=== PATIENT | male | born 1980 | race African-American/Black ===

== ENCOUNTER 2021-04-21 05:20 | Emergency (ER) | payer MEDICAID ==
[~2021-04-21] VITALS: Ht 190.5 cm; Wt 92.0 kg
[2021-04-21] MEDS ORDERED: MAGNESIUM/ALUMINUM HYDROXIDE/SIMETHICONE 30ML UDC PO STA (05:53)
[2021-04-21] MEDS ORDERED: ONDANSETRON HCL 4MG/2ML INJ IV STA (05:53)
[2021-04-21] MEDS ORDERED: PANTOPRAZOLE SODIUM 40 MG/VIAL IV STA (05:53)
[2021-04-21] MEDS ORDERED: SODIUM CHLORIDE 0.9% 1,000 ML IV ONE (06:00)
[2021-04-21] MEDS ORDERED: VISCOUS LIDOCAINE 2% 15 ML UDC MM ONE (06:15)
[2021-04-21 06:40] LABS: BASOPHILS % 0.7 % (0.0-2.0); EOSINOPHILS % 0.2 % (0.0-5.0); HEMATOCRIT. 42.2 % (42.0-52.0); HEMOGLOBIN. 14.4 g/dL (14.0-18.0); LYMPHOCYTES % 19.7 % (20.0-50.0); MEAN CORPUSCULAR HEMOGLOBIN 28.1 pg (28.0-32.0); MEAN CORPUSCULAR VOLUME 82.3 fL (80.0-94.0); MEAN PLATELET VOLUME 9.3 fl (7.4-10.4); MONOCYTES % 5.4 % (2.0-8.0); PLATELET 202 x1000/uL (130-400); RED BLOOD CELL COUNT 5.13 mill/uL (4.7-6.1); RED CELL DISTRIBUTION WIDTH 14.2 % (11.6-14.6)
[2021-04-21 06:49] LABS: CHLORIDE 106 mEq/L (98-107)
[2021-04-21 06:52] LABS: ETHANOL BLOOD < 10 mg/dL
[2021-04-21 07:05] LABS: CLARITY URINE TURBID (CLEAR); COLOR URINE YELLOW (YELLOW); KETONES URINE NEGATIVE (NEGATIVE); LEUKOCYTE ESTERASE URINE NEGATIVE (NEGATIVE); NITRITE URINE NEGATIVE (NEGATIVE); OCCULT BLOOD URINE NEGATIVE (NEGATIVE); PH URINE 8.5 (4.5-8.0); PROTEIN URINE NEGATIVE (NEGATIVE); SPECIFIC GRAVITY URINE 1.013 (1.005-1.030); UROBILINOGEN URINE 0.2 E.U./dL (0.2-1.0)
[2021-04-21 07:12] LABS: *AMPHETAMINES SCREEN URINE NEGATIVE (NEGATIVE); *BARBITURATES SCREEN URINE NEGATIVE (NEGATIVE); *BENZODIAZEPINES SCREEN URINE NEGATIVE (NEGATIVE); *COCAINE SCREEN URINE NEGATIVE (NEGATIVE)
[2021-04-21 07:13] LABS: CANNABINOID URINE SCREEN NEGATIVE (NEGATIVE); METHADONE URINE SCREEN NEGATIVE (NEGATIVE); OPIATES URINE SCREEN NEGATIVE (NEGATIVE); PHENCYCLIDINE URINE SCREEN NEGATIVE (NEGATIVE)
[2021-04-21 08:59] VITALS: BP 145/79
[2021-04-21] MEDS ORDERED: ONDA4TAB5 MT (09:09)
[2021-04-21] MEDS ORDERED: IBUP-2029 MT (09:09)
== END 2021-04-21 09:41 | disposition home or self-care (01) ==
LOC: ER 05:20
DX: K80.20 Calculus of gallbladder without cholecystitis without obstruction (principal); R03.0 Elevated blood-pressure reading, without diagnosis of hypertension; R73.9 Hyperglycemia, unspecified; Q78.0 Osteogenesis imperfecta
CPT/HCPCS: 36415; 71045; 76705; 80053; 80305; 80320; 81003; 83690; 85025; 93005; 96361; 96374; 96375; 99285; C9113; J2405; J7030; G0480